=== PATIENT | male | born 1950 | race Caucasian/White ===

== ENCOUNTER 2024-05-17 09:43 | Outpatient (CLI) | payer MEDICARE | END 2024-05-17 09:44 | disposition home or self-care (01) | LOC: CSHULT 09:43 | PROVIDERS: ATTEND Urology | DX: N20.0 Calculus of kidney (principal); N28.1 Cyst of kidney, acquired; K76.9 Liver disease, unspecified | CPT/HCPCS: 76770 ==

== ENCOUNTER 2024-06-22 08:26 | Outpatient (CLI) | payer MEDICARE | END 2024-06-22 08:27 | disposition home or self-care (01) | LOC: CSHMRI 08:26 | PROVIDERS: ATTEND Internal Medicine Gastroenterology | DX: K76.89 Other specified diseases of liver (principal); R10.11 Right upper quadrant pain; K74.60 Unspecified cirrhosis of liver | CPT/HCPCS: 74183 ==